=== PATIENT | male | born 1945 ===

== ENCOUNTER 2024-05-01 14:17 | Outpatient (CLI) | payer MEDICARE ==
[~2024-05-01 14:17] MED LIST: Magnevist 469MG/ML 20 ML VIAL ONE
== END 2024-05-01 14:18 | disposition home or self-care (01) ==
LOC: CSHMRI 14:17
PROVIDERS: ATTEND Urology
DX: R97.20 Elevated prostate specific antigen [PSA] (principal); N40.2 Nodular prostate without lower urinary tract symptoms
CPT/HCPCS: 36415; 72197; 82565